=== PATIENT | male | born 1995 | race African-American/Black ===

== ENCOUNTER 2017-11-29 19:41 | Emergency (ER) | payer SELFPAY, BC, OTHER ==
[2017-11-29] MEDS: IV NORMAL SALINE 1000ML BAG 1,000 ML IV ×2 (20:23)
[2017-11-29] MEDS: ONDANSETRON PF 4 MG/2 ML VIAL. IV ×2 (20:23)
[2017-11-29 20:33] LABS: BASO % 1 % (0-3); EOS % 0 % (0-3); HEMATOCRIT 45.9 % (39.0-53.0); HEMOGLOBIN 15.8 g/dL (13.0-17.5); LYMPH # 0.9 x10^3/uL (1.0-4.8); LYMPH % 13 % (24-48); MEAN CORPUSCULAR HEMOGLOBIN 29 pg (25-35); MEAN CORPUSCULAR HGB CONC 34 g/dL (31-37); MEAN CORPUSCULAR VOLUME 83 fL (79-100); MONO # 1.3 x10^3/uL (0.0-1.1); MONO % 19 % (0-9); NEUT # 4.6 x10^3uL (1.8-7.7); NEUT % 67 % (31-73); PLATELET COUNT 236 x10^3/uL (140-400); RED BLOOD COUNT 5.54 x10^6/uL (4.30-5.70); RED CELL DISTRIBUTION WIDTH 14.3 % (11.5-14.5); WHITE BLOOD COUNT 6.8 x10^3/uL (4.0-11.0)
[2017-11-29 20:39] LABS: ADD MAN DIFF? YES
[2017-11-29 20:51] LABS: ALBUMIN 4.2 g/dL (3.4-5.0); ALBUMIN/GLOBULIN RATIO 1.1 (1.0-1.7); ALK PHOS 65 U/L (46-116); ALT (SGPT) 33 U/L (16-63); ANION GAP 11 (6-14); AST (SGOT) 26 U/L (15-37); BLOOD UREA NITROGEN 13 mg/dL (8-26); BUN/CREATININE RATIO 12 (6-20); CARBON DIOXIDE 27 mmol/L (21-32); CHLORIDE 98 mmol/L (98-107); CREATININE 1.1 mg/dL (0.7-1.3); GFR 100.4; GLUCOSE 103 mg/dL (70-99); SODIUM 136 mmol/L (136-145); TOTAL BILIRUBIN 0.4 mg/dL (0.2-1.0)
[2017-11-29 20:52] LABS: INFLUENZA A PATIENT NEGATIVE (NEGATIVE)
[2017-11-29 20:53] LABS: INFLUENZA B PATIENT POSITIVE (NEGATIVE); OBC FLU VALID
[2017-11-29 20:54] LABS: POTASSIUM 2.7 mmol/L (3.5-5.1)
[2017-11-29 21:13] LABS: % ATYL 3 % (0-0); % BANDS 31 % (0-9); % LYMPHS 7 % (24-48); % MONOS 15 % (0-10); % SEGS 44 % (35-66); PLT ESTIMATE ADEQUATE (ADEQUATE); TOXIC VACUOLATION SLIGHT
[2017-11-29] MEDS: OSELTAMIVIR 75 MG CAPSULE PO ×2 (21:33)
[2017-11-29] MEDS: POTASSIUM CHLORIDE 20 MEQ TABLET.ER. PO ×2 (21:33)
== END 2017-11-29 21:55 | disposition home or self-care (01) ==
LOC: ER 19:41
DX: J10.1 Influenza due to other identified influenza virus with other respiratory manifestations (principal); E87.5 Hyperkalemia
CPT/HCPCS: 36415; 71046; 80053; 85007; 85025; 87804; 87804-59; 96361; 96374; 99285-25; J2405; J7030

== ENCOUNTER → 2020-05-07 | Outpatient (CLI) | payer BC ==
[2017-11-29 21:30] VITALS: BP 135/75
[~2020-05-07] MED LIST: CONTRAST GIVEN. MC PRN; IBUP-1007 PO; IOHEXOL 300 MG/ML 100ML VIAL. IV ONE; ONDA4TAB10 SL; OSEL75CA PO; POTA20TA4 PO
--- NOTE | 2020-05-07 12:11 | KCIC ---
CT abdomen with contrast History: Elevated lipase Technique: After the administration of intravenous contrast, CT imaging was performed of the abdomen. No oral contrast was given. Pelvis was not imaged. Multiplanar images are reviewed. Exposure: One or more of the following individualized dose reduction techniques were utilized for this examination: 1. Automated exposure control 2. Adjustment of the mA and/or kV according to patient size 3. Use of iterative reconstruction technique. Comparison: None Findings: There is some motion degradation. There is no significant abnormality of the visualized lung bases. There is no significant focal abnormality of the spleen. There is likely hepatic steatosis. No significant localized peripancreatic fluid collection or inflammatory type change is identified at this time. Pancreas enhances fairly homogeneously. There are couple of tiny hypodense foci of the liver too small to characterize about 2 to 3 mm in size. Both kidneys enhance without hydronephrosis. Gallbladder is present without obvious intraluminal abnormality by CT. Accurate evaluation of bowel is limited without oral contrast. There is no significant inflammatory change adjacent to the bowel. There is no evidence of bowel obstruction, free fluid, or free air. Normal appendix is visualized. Impression: 1. No significant acute abnormality is identified. Imaging findings of pancreatitis can be delayed relative to laboratory changes. There is likely hepatic steatosis. Electronically signed by: Mj Toribio MD (05/07/2020 12:08 PM) [id number]
== END ==
LOC: KCIC CT 11:15
PROVIDERS: ATTEND Family Medicine
DX: K85.90 Acute pancreatitis without necrosis or infection, unspecified (principal); R74.8 Abnormal levels of other serum enzymes; R10.9 Unspecified abdominal pain
CPT/HCPCS: 74160; Q9967